=== PATIENT | female | born 1990 | race Caucasian/White ===

== ENCOUNTER 2016-12-29 12:25 | Emergency (ER) | payer MEDICAID ==
[2016-12-29] MEDS ORDERED: CEPHALEXIN 500 MG CAPSULE ONE (13:39)
[2016-12-29] MEDS ORDERED: SULFAMETHOXAZOLE 800 MG/TRIMETHOPRIM 160 MG TABLET ONE (13:39)
[2016-12-29] MEDS ORDERED: IBUPROFEN 800 MG TABLET ONE (13:40)
[2016-12-29] MEDS ORDERED: DEXAMETHASONE SOD PHOS 10 MG/1 ML VIAL ONE (13:40)
== END 2016-12-29 14:01 | disposition home or self-care (01) ==
LOC: ED 12:25
DX: L02.01 Cutaneous abscess of face (principal); B95.8 Unspecified staphylococcus as the cause of diseases classified elsewhere; F17.210 Nicotine dependence, cigarettes, uncomplicated; Z71.6 Tobacco abuse counseling
CPT/HCPCS: 87070; 87205; 99283 ×2; 10061 ×2; A9270 ×3; J1100